=== PATIENT | male | born 1940 | race Caucasian/White ===

== ENCOUNTER 2023-02-12 17:30 | Outpatient (CLI) | payer OTHER | END 2023-02-12 17:31 | disposition home or self-care (01) | LOC: SLEEPLAB 17:30 | PROVIDERS: ATTEND Internal Medicine | DX: G47.33 Obstructive sleep apnea (adult) (pediatric) (principal); R06.02 Shortness of breath | CPT/HCPCS: 95800 ==

== ENCOUNTER 2023-04-05 19:00 | Outpatient (CLI) | payer OTHER | END 2023-04-05 19:01 | disposition home or self-care (01) | LOC: SLEEPLAB 19:00 | PROVIDERS: ATTEND Internal Medicine | DX: G47.33 Obstructive sleep apnea (adult) (pediatric) (principal); R06.83 Snoring; G47.10 Hypersomnia, unspecified; E66.9 Obesity, unspecified; Z68.24 Body mass index [BMI] 24.0-24.9, adult | CPT/HCPCS: 95811 ==

== ENCOUNTER 2024-05-24 08:10 | Outpatient (CLI) | payer OTHER ==
[2024-05-24] MEDS ORDERED: Magnevist 469MG/ML 20 ML VIAL ONE (11:08)
== END 2024-05-24 08:11 | disposition home or self-care (01) ==
LOC: MRI 08:10
PROVIDERS: ATTEND Radiology Radiation Oncology
DX: C79.31 Secondary malignant neoplasm of brain (principal); R60.0 Localized edema
CPT/HCPCS: 70553; 76376

== ENCOUNTER 2024-07-28 08:40 | Emergency (ER) | payer OTHER ==
[2024-07-28] MEDS ORDERED: Ketorolac Tromethamine 30 MG (1 mL) VIAL ONE (09:20)
[2024-07-28] MEDS ORDERED: Morphine 4 MG/ML VIAL ONE (09:20)
[2024-07-28] MEDS ORDERED: Ondansetron PF 4 MG/2 ML Vial ONE (09:20)
[2024-07-28 09:42] LABS: #Basophils 0.07 10x3/uL (0.0-0.2); %Basophils 0.8 % (0.0-1.0); %Eosinophils 1.8 % (0.0-10.0); %Lymphocytes 34.2 % (21.0-51.0); %Neutrophils 53.7 % (42.0-75.0); Hemoglobin 14.1 g/dL (14.0-18.0); Mean Corpuscular HGB CONC 33.6 g/dL (32.0-36.0); Mean Corpuscular Hemoglobin 30.7 pg (27.0-31.0); Mean Corpuscular Volume 91.3 fL (78.0-98.0); Mean Platelet Volume 9.3 fL (7.4-10.4); Platelet Count 318 10x3/uL (130-400); RBC Distribution Width 12.7 % (11.5-14.5)
[2024-07-28 09:51] LABS: ALT (SGPT) 23 U/L (8-55); AST (SGOT) 19 U/L (5-34); Albumin 3.8 g/dL (3.4-4.8); Alkaline Phosphatase 117 U/L (40-110); Anion Gap 13 mmol/L (10-20); BUN (Urea Nitrogen) 14 mg/dL (8.4-25.7); Bilirubin, Total 0.5 mg/dL (0.2-1.2); Calc. Creatinine Clearance 0 mL/min (70-130); Carbon Dioxide 26 mmol/L (23-31); Chloride 101 mmol/L (98-107); Estimated GFR 47; Globulin 3.4 g/dL (2.4-3.5); Glucose 393 mg/dL (83-110); Potassium 4.7 mmol/L (3.5-5.1); Protein, Total 7.2 g/dL (5.8-8.1); Sodium 135 mmol/L (136-145)
[2024-07-28 10:48] LABS: Bacteria/HPF None Seen HPF (None Seen); Bilirubin Negative (Negative); Blood, Urine Negative (Negative); CAUTI Indications for Culture Dysuria,urgency,freq; Clarity Clear (Clear); Glucose, Urine (Dipstick) Greater than 1000 mg/dL (Negative); Ketone, Urine Negative (Negative); Leukocyte Negative Leu/uL (Negative); Nitrite Negative (Negative); Protein, Urine (Dipstick) 30 mg/dL (Neg-Trace); RBC/HPF None Seen HPF (0-3); Specific Gravity, Urine 1.022 (1.002-1.036); Squamous Epithelial 0-3 HPF (0-3); Urobilinogen Normal mg/dL (Less than 2); WBC/HPF None Seen HPF (0-3); pH, Urine 5.5 (5.0-9.0)
[2024-07-28 10:59] LABS: Urine Culture Reflex No No
[2024-07-28] MEDS ORDERED: Insulin Lispro 100 UNIT/ML 10 ML VIAL ONE (11:11)
== END 2024-07-28 13:10 | disposition home or self-care (01) ==
LOC: ERS 08:40
DX: M54.50 Low back pain, unspecified (principal); I10 Essential (primary) hypertension; E11.9 Type 2 diabetes mellitus without complications; E78.00 Pure hypercholesterolemia, unspecified; Z79.899 Other long term (current) drug therapy; Z79.4 Long term (current) use of insulin; Z87.891 Personal history of nicotine dependence
CPT/HCPCS: 36416; 74177; 80053; 81001; 85025; 96374; 96375; J1815; J1885; J2272; J2405

== ENCOUNTER 2024-09-05 08:45 | Outpatient (CLI) | payer OTHER | END 2024-09-05 08:46 | disposition home or self-care (01) | LOC: PET 08:45 | PROVIDERS: ATTEND Internal Medicine Hematology & Oncology | DX: C43.21 Malignant melanoma of right ear and external auricular canal (principal); C79.31 Secondary malignant neoplasm of brain; C78.00 Secondary malignant neoplasm of unspecified lung; R91.8 Other nonspecific abnormal finding of lung field | CPT/HCPCS: 78815; A9552 ==

== ENCOUNTER 2024-09-07 12:20 | Outpatient (CLI) | payer OTHER ==
[~2024-09-07 12:20] MED LIST: Magnevist 469MG/ML 20 ML VIAL ONE
== END 2024-09-07 12:21 | disposition home or self-care (01) ==
LOC: MRI 12:20
PROVIDERS: ATTEND Radiology Radiation Oncology
DX: C79.31 Secondary malignant neoplasm of brain (principal); C43.21 Malignant melanoma of right ear and external auricular canal; C78.00 Secondary malignant neoplasm of unspecified lung
CPT/HCPCS: 70553; 71046; 76376

== ENCOUNTER 2025-05-15 10:34 | Outpatient (CLI) | payer OTHER | END 2025-05-15 10:35 | disposition home or self-care (01) | LOC: MRI 10:34 | PROVIDERS: ATTEND Internal Medicine Hematology & Oncology | DX: C43.21 Malignant melanoma of right ear and external auricular canal (principal); C79.31 Secondary malignant neoplasm of brain; C78.00 Secondary malignant neoplasm of unspecified lung | CPT/HCPCS: 70553; 71046; 76014; 76376 ==

== ENCOUNTER 2025-07-18 09:56 | Outpatient (CLI) | payer OTHER | END 2025-07-18 09:57 | disposition home or self-care (01) | LOC: PET 09:56 | PROVIDERS: ATTEND Internal Medicine Hematology & Oncology | DX: C43.21 Malignant melanoma of right ear and external auricular canal (principal); C79.31 Secondary malignant neoplasm of brain; C78.00 Secondary malignant neoplasm of unspecified lung | CPT/HCPCS: 78815; A9552 ==